=== PATIENT | female | born 1955 | race Caucasian/White ===

== ENCOUNTER → 2016-10-29 | Outpatient (CLI) | payer OTHER | LOC: HEART 5 15:42 | DX: R91.8 Other nonspecific abnormal finding of lung field (principal); F17.210 Nicotine dependence, cigarettes, uncomplicated; R94.2 Abnormal results of pulmonary function studies | CPT/HCPCS: 94060 ==

== ENCOUNTER 2021-10-01 16:24 | Inpatient (IN) | payer OTHER ==
[~2021-10-01] VITALS: Ht 167.6 cm; Wt 49.9 kg
[2021-10-01 20:50] LABS: HEMOGLOBIN 11.1 gm/dl (12.3-15.3); RED BLOOD COUNT 3.76 M/UL (4.00-5.10); WHITE BLOOD COUNT 10.5 K/UL (4.5-11.0)
[2021-10-01 21:09] LABS: BUN/CREATININE RATIO 14 (0-10)
[2021-10-02 04:11] LABS: HEMOGLOBIN 11.1 gm/dl (12.3-15.3); RED BLOOD COUNT 3.77 M/UL (4.00-5.10); WHITE BLOOD COUNT 9.5 K/UL (4.5-11.0)
[2021-10-02 04:27] LABS: BUN/CREATININE RATIO 13 (0-10)
--- NOTE | 2021-10-02 09:20 | NUR ---
Patient taken off floor by staff via wheelchair for TILT TABLE TEST
[2021-10-02] MEDS ORDERED: PROVENTIL HFA6.7 GM INH (11:43)
[2021-10-02] MEDS ORDERED: LIPITOR TAB 2020 MG PO (11:44)
[2021-10-02] MEDS ORDERED: COREG12.5 MG PO (11:44)
[2021-10-02] MEDS ORDERED: METHIMAZOLE10 MG PO (11:45)
[2021-10-02] MEDS ORDERED: GABAPENTIN600 MG PO (11:45)
[2021-10-02] MEDS ORDERED: OXCARBAZEPINE300 MG PO (11:46)
[2021-10-02] MEDS ORDERED: PROTONIX 40 MG40 M1 PO (11:47)
[2021-10-02] MEDS ORDERED: VALSARTAN320 MG PO (11:47)
[2021-10-02] MEDS ORDERED: HYDROCODON-ACE1 EAC2 PO (11:48)
[2021-10-02] MEDS ORDERED: FLONASE 0.05% N16 GM (11:48)
[2021-10-02] MEDS ORDERED: TRAMADOL HCL50 MG PO (11:49)
[2021-10-02] MEDS ORDERED: AMLODIPINE BESYL5 MG PO (11:50)
[2021-10-02] MEDS ORDERED: LISINOPRIL40 MG PO (11:50)
[2021-10-03 13:55] LABS: HEMOGLOBIN 11.3 gm/dl (12.3-15.3); RED BLOOD COUNT 3.8 M/UL (4.00-5.10); WHITE BLOOD COUNT 10.1 K/UL (4.5-11.0)
[2021-10-03 14:22] LABS: BUN/CREATININE RATIO 11 (0-10)
[2021-10-04 04:51] LABS: WHITE BLOOD COUNT 9.2 K/UL (4.5-11.0)
[2021-10-04 05:09] LABS: HEMOGLOBIN 8.8 gm/dl (12.3-15.3); RED BLOOD COUNT 3.03 M/UL (4.00-5.10)
[2021-10-04 05:14] LABS: BUN/CREATININE RATIO 19 (0-10)
[2021-10-05 11:24] LABS: BUN/CREATININE RATIO 20 (0-10)
[2021-10-05 11:24] LABS: WHITE BLOOD COUNT 7.8 K/UL (4.5-11.0)
[2021-10-05 11:31] LABS: RED BLOOD COUNT 2.08 M/UL (4.00-5.10)
--- NOTE | 2021-10-05 14:54 | NUR ---
10/05/21 0815 BLADDER TRAINING INTIATED. MOANING ABOUT BEING ABLE TO PEE. SHEEHAN INTACT
[2021-10-06 07:39] LABS: WHITE BLOOD COUNT 7.2 K/UL (4.5-11.0)
[2021-10-06 07:41] LABS: RED BLOOD COUNT 3.29 M/UL (4.00-5.10)
[2021-10-07 09:59] LABS: HEMOGLOBIN 10.9 gm/dl (12.3-15.3)
[2021-10-07 10:00] LABS: RED BLOOD COUNT 3.64 M/UL (4.00-5.10); WHITE BLOOD COUNT 9.2 K/UL (4.5-11.0)
[2021-10-07 10:36] LABS: BUN/CREATININE RATIO 16 (0-10)
[2021-10-08 11:00] LABS: HEMOGLOBIN 10.8 gm/dl (12.3-15.3); RED BLOOD COUNT 3.59 M/UL (4.00-5.10); WHITE BLOOD COUNT 10.1 K/UL (4.5-11.0)
[2021-10-08 11:42] LABS: BUN/CREATININE RATIO 17 (0-10)
[2021-10-09 03:29] LABS: HEMOGLOBIN 10.1 gm/dl (12.3-15.3); RED BLOOD COUNT 3.38 M/UL (4.00-5.10); WHITE BLOOD COUNT 9.1 K/UL (4.5-11.0)
[2021-10-09 03:49] LABS: BUN/CREATININE RATIO 17 (0-10)
[2021-10-10 08:51] LABS: HEMOGLOBIN 11.4 gm/dl (12.3-15.3)
[2021-10-10 08:57] LABS: RED BLOOD COUNT 3.79 M/UL (4.00-5.10)
[2021-10-10] MEDS ORDERED: ENOXAPARIN40 MG/0.4 SC (09:07)
[2021-10-10 09:52] LABS: BUN/CREATININE RATIO 17 (0-10)
== END 2021-10-10 19:13 | DRG 480 ==
LOC: ER1 16:24 → CDU 20:18 → M/S 20:18
PROVIDERS: Internal Medicine; Orthopaedic Surgery; Physician Assistant; ADMIT Internal Medicine
PROC: 0QS734Z Reposition Left Upper Femur with Internal Fixation Device, Percutaneous Approach (ICD-10-PCS; principal; 2021-10-03 15:45)
DX: S72.142A Displaced intertrochanteric fracture of left femur, initial encounter for closed fracture (principal); G92.8 Other toxic encephalopathy; E44.1 Mild protein-calorie malnutrition; Z68.1 Body mass index [BMI] 19.9 or less, adult; E87.1 Hypo-osmolality and hyponatremia; Z20.822 Contact with and (suspected) exposure to COVID-19; T45.0X5A Adverse effect of antiallergic and antiemetic drugs, initial encounter; G40.909 Epilepsy, unspecified, not intractable, without status epilepticus; E05.90 Thyrotoxicosis, unspecified without thyrotoxic crisis or storm; W18.30XA Fall on same level, unspecified, initial encounter; I10 Essential (primary) hypertension; E87.6 Hypokalemia; L89.152 Pressure ulcer of sacral region, stage 2; G50.0 Trigeminal neuralgia; J44.9 Chronic obstructive pulmonary disease, unspecified; F17.210 Nicotine dependence, cigarettes, uncomplicated; Z88.0 Allergy status to penicillin; Z90.710 Acquired absence of both cervix and uterus; Z98.890 Other specified postprocedural states; Z98.891 History of uterine scar from previous surgery
CPT/HCPCS: 0240U; 36415; 36600; 51702; 70450; 71045; 73502; 73552; 76000; 80048; 80053; 80156; 81001; 82140; 82550; 82553; 82607; 82746; 82803; 82962; 83735; 84100; 84439; 84443; 84484; 85025; 85610; 85730; 86850; 86900; 86901; 86920; 92526; 92610; 93005; 96374; 96376; 97110; 97110-GP-CQ; 97116-GP-CQ; 97162; 97166; 97530; 97530-GP-CQ; 97535; 99284; C1713; J0171; J1100; J1200; J1650; J1953; J1956; J2060; J2270; J2405; J2704; J2795; J7030; J7042; J7120; P9016; U0002